=== PATIENT | female | born 1970 | race Caucasian/White ===

== ENCOUNTER 2017-11-11 21:05 | Emergency (ER) | payer OTHER ==
[2017-11-11] MEDS ORDERED: DiphenhydrAMINE 50 mg/ml Inj ONE (21:26)
[2017-11-11] MEDS ORDERED: DiphenhydrAMINE 50 mg/ml Inj IVP STA (21:31)
--- NOTE | 2017-11-11 21:41 | C.PDOC ---
History Of Present Illness Patient presents to the ER with a complaint of a diffuse urticarial rash and facial swelling after she ate some [employer]. Patient is currently speaking in complete sentences; denies difficulty breathing or difficulty swallowing. Time Seen by Provider: 11/11/17 21:40 Chief Complaint (Nursing): Allergic Reaction History Per: Patient History/Exam Limitations: no limitations Onset/Duration Of Symptoms: Hrs Current Symptoms Are (Timing): Still Present Context: Food ([employer]) Associated Symptoms: Skin Rash, Swelling. denies: Dyspnea, Trouble Swallowing Home/EMS Treatment: None Severity: Moderate Pain Scale Rating Of: 4 Recent travel outside of the [place]: No Past Medical History Reviewed: Historical Data, Nursing Documentation, Vital Signs Vital Signs: Last Vital Signs Temp 97.6 F 11/11/17 21:06 Pulse 94 H 11/11/17 21:06 Resp 18 11/11/17 21:06 BP 145/90 11/11/17 21:06 Pulse Ox 100 11/11/17 22:46 - Medical History PMH: Chronic Pain (lower back pain) Family History: States: No Known Family Hx - Social History Hx Tobacco Use: No Hx Alcohol Use: No Hx Substance Use: No - Immunization History Hx Tetanus Toxoid Vaccination: No Hx Influenza Vaccination: No Hx Pneumococcal Vaccination: No Review Of Systems Constitutional: Negative for: Fever, Chills ENT: Negative for: Throat Swelling Respiratory: Negative for: Shortness of Breath Gastrointestinal: Negative for: Nausea, Vomiting Skin: Positive for: Rash Physical Exam - Physical Exam Appears: Non-toxic Skin: Warm, Dry, Rash (Diffuse urticarial rash) Head: Normacephalic Nose: Other (Slightly congested) Oral Mucosa: Moist Throat: No Erythema, No Other (Swelling) Chest: Symmetrical, No Tenderness Cardiovascular: Rhythm Regular Respiratory: No Accessory Muscle Use, No Rales, No Rhonchi, No Stridor, No Wheezing Gastrointestinal/Abdominal: Soft, No Tenderness Neurological/Psych: Oriented x3 ED Course And Treatment O2 Sat by Pulse Oximetry: 100 (Room air) Pulse Ox Interpretation: Normal Progress Note: Benadryl, pepcid, and solumedrol administered. 10:40 pm rash resolved. pt feels much better Reevaluation Time: 23:17 Reassessment Condition: Improved Critical Care Time - Critical Care Note Total Time (in mins): 30 Documented critical care: time excludes all time spent performing seperately billable procedures. Disposition Counseled Patient/Family Regarding: Studies Performed, Diagnosis, Need For Followup, Rx Given - Disposition Referrals: Daksha Castillo MD [Staff Provider] - Disposition: HOME/ ROUTINE Disposition Time: 21:41 Condition: FAIR Additional Instructions: Please return if symptoms recur. Also use benadryl, pepcid and claritin Prescriptions: Epinephrine [Epipen] 0.3 mg IJ ONCE PRN #2 auto.injct PRN Reason: Anaphylaxis Prednisone [Deltasone] 20 mg PO DAILY #5 tablet Instructions: Eric (DC) Forms: [employer] (Nepalese) - Clinical Impression Clinical Impression: Allergic reaction - Scribe Statement The provider has reviewed the documentation as recorded by the Scribe Micah Balderas All medical record entries made by the Scribe were at my direction and personally dictated by me. I have reviewed the chart and agree that the record accurately reflects my personal performance of the history, physical exam, medical decision making, and the department course for this patient. I have also personally directed, reviewed, and agree with the discharge instructions and disposition.
[2017-11-11 23:34] VITALS: BP 122/72; PULSE 92; RESP 20; TEMP 98.4; O2SAT 97
== END 2017-11-11 23:33 | disposition home or self-care (01) ==
LOC: C.ER 21:05
DX: L50.0 Allergic urticaria (principal)
CPT/HCPCS: 96374; 96375; 99284; J1200; J2930

== ENCOUNTER 2018-03-24 07:28 | Day surgery (SDC) | payer OTHER ==
[2018-03-24] MEDS ORDERED: Propofol 10 mg/ml Inj (20 ML) ONE (08:26)
[2018-03-24 09:58] VITALS: TEMP 98.5; O2SAT 100
[2018-03-24 13:27] VITALS: BP 110/77; PULSE 77; RESP 12
== END 2018-03-24 10:50 | disposition home or self-care (01) ==
LOC: C.ENDO 07:28
PROVIDERS: ATTEND Internal Medicine Gastroenterology
DX: K21.0 Gastro-esophageal reflux disease with esophagitis (principal); K44.9 Diaphragmatic hernia without obstruction or gangrene; K26.9 Duodenal ulcer, unspecified as acute or chronic, without hemorrhage or perforation; K29.50 Unspecified chronic gastritis without bleeding
CPT/HCPCS: 43239; 88305; J2704

== ENCOUNTER 2018-12-05 08:27 | Outpatient (CLI) | payer OTHER | END 2018-12-05 08:28 | disposition home or self-care (01) | LOC: C.MAMMO 08:27 | DX: Z12.31 Encounter for screening mammogram for malignant neoplasm of breast (principal) ==